=== PATIENT | male | born 2005 | race Caucasian/White ===

== ENCOUNTER 2025-03-27 16:12 | Emergency (ER) | payer BC, MEDICAID ==
[2025-03-27 16:57] LABS: BASOPHILS ABSOLUTE AUTO 0.1 K/mm3 (0.0-0.3); BASOPHILS PERCENT AUTO 1.1 % (0.0-1.0); EOSINOPHILS ABSOLUTE AUTO 0.2 K/mm3 (0.0-0.7); EOSINOPHILS PERCENT AUTO 2.1 % (0.0-5.0); IMMATURE GRAN ABSOLUTE AUTO 0.01 K/mm3 (0.00-0.05); IMMATURE GRAN PERCENT AUTO 0.1 % (0.0-0.4); LYMPHOCYTES ABSOLUTE AUTO 2.3 K/mm3 (2.0-8.8); LYMPHOCYTES PERCENT AUTO 22.8 % (50.0-65.0); MEAN PLATELET VOLUME 8.8 fl (9.4-12.4); MONOCYTES ABSOLUTE AUTO 1.1 K/mm3 (0.1-1.4); MONOCYTES PERCENT AUTO 10.9 % (2.0-10.0); NEUTROPHILS ABSOLUTE AUTO 6.2 K/mm3 (1.5-8.5); NEUTROPHILS PERCENT AUTO 63.0 % (35.0-45.0); NRBC ABSOLUTE 0.00 (0.00-0.03); NRBC PERCENT 0.0 % (0.0-0.2); PLATELET COUNT,PLT 357 K/mm3 (150-400); RED BLOOD CELL COUNT 6.03 M/mm3 (4.52-5.90); WHITE BLOOD CELL COUNT,WBC 9.89 K/mm3 (4.5-13.5)
[2025-03-27 17:07] LABS: A/G RATIO 1.3 (1-2); ALANINE AMINOTRANSFERASE,ALT 18 U/L (16-63); ASPARTATE AMNIOTRANSFERASE,AST 13 U/L (15-37); BILIRUBIN TOTAL 1.1 mg/dL (0.2-1.0); BLOOD UREA NITROGEN,BUN 14 mg/dL (7-18); CARBON DIOXIDE,CO2 24 mEq/L (21-32); CHLORIDE,CL 104 mEq/L (98-107); CREATININE 1.2 mg/dL (0.7-1.3); EST CRCL DRUG DOSING (CG) 86.13 mL/min; ESTIMATED GFR 89 mL/min (>60); GLUCOSE RANDOM 108 mg/dL (70-99); POTASSIUM,K 3.8 mEq/L (3.5-5.1); PROTEIN TOTAL,TP 8.1 g/dl (6.4-8.2); SODIUM,NA 142 mEq/L (136-145)
[2025-03-27] MEDS: Ketorolac 30 MG/ML SDV IVPUSH ONE (17:08)
[2025-03-27] MEDS: diphenhydrAMINE 50 MG/ML SDV IVPUSH ONE (17:08)
[2025-03-27] MEDS: Ondansetron 4 MG/2 ML SDV IVPUSH ONE (17:08)
[2025-03-27] MEDS: Sodium Chloride 0.9% 10 ML Syringe FLUSH PRN (17:14)
[2025-03-27 18:58] LABS: APPEARANCE,URINE CLEAR (Clear); GLUCOSE,URINE NEGATIVE (Negative); OCCULT BLOOD,URINE NEGATIVE (Negative)
[2025-03-27 19:08] LABS: BUPRENORPHINE SCREEN,URINE NEGATIVE (CUTOFF=10); METHADONE SCREEN, URINE NEGATIVE (CUT0FF=200); METHAMPHETAMINES SCREEN, URINE NEGATIVE (CUTOFF=500); OXYCODONE SCREEN,URINE NEGATIVE (CUT0FF=100); THC SCREEN,URINE 20 NG/ML NEGATIVE (CUTOFF=50)
[2025-03-27 19:16] LABS: AMPHETAMINES SCREEN, URINE NEGATIVE (CUTOFF=500)
[2025-03-27 19:20] LABS: EPITHELIAL CELLS,URINE NOT SEEN /hpf (0-5)
== END 2025-03-27 19:35 | disposition home or self-care (01) ==
LOC: JD.ED 16:12
DX: G43.909 Migraine, unspecified, not intractable, without status migrainosus (principal); E86.0 Dehydration
CPT/HCPCS: 36415; 70450; 80053; 80306; 81001; 83735; 85025; 86140; 96361; 96374; 96375; 99284; A9270; J1200; J1885; J2405; J7030